=== PATIENT | female | born 1965 | race Caucasian/White ===

== ENCOUNTER 2021-08-09 13:05 | Emergency (ER) | payer OTHER ==
[~2021-08-09] VITALS: Ht 167.6 cm; Wt 85.7 kg
[2021-08-09 13:14] VITALS: BP 146/95
== END 2021-08-09 16:03 | disposition left against medical advice (07) ==
LOC: MED 13:05
DX: R30.0 Dysuria (principal)
CPT/HCPCS: 81002; 99282